=== PATIENT | male | born 1985 | race Caucasian/White ===

== ENCOUNTER 2019-05-24 15:43 | Emergency (ER) | payer SELFPAY ==
[~2019-05-24] VITALS: Ht 182.9 cm; Wt 170.1 kg
[2019-05-24 16:02] VITALS: BP 152/90
[2019-05-24] MEDS ORDERED: METF1000 PO (16:08)
[2019-05-24] MEDS ORDERED: GLIP5TAB4 PO (16:08)
--- NOTE | 2019-05-24 16:24 | NUR ---
PROVIDED PT WITH URINE CUP, HE DOES NOT NEED TO USE THE RESTROOM AT THIS TIME.
--- NOTE | 2019-05-24 16:24 | NUR ---
C/O L LOWER JAW PAIN X1 DAY 05/18 & DULL. PT REPORTS CRACKING A TOOTH 2 WEEKS AGO AND THEN YESTERDAY HE WOKE UP WITH A SWOLLEN L CHEEK AND AN ABCESS IN HIS MOUTH. PT REPORTS HE MADE AN APPT WITH HIS DENTIST BUT THE ABCESS POPPED AND HIS DENTIST REFFERED HIM TO THE ER FOR FURTHER EVALUATION. L SIDE OF PT LOWER JAW IS SWOLLEN. PT DENIES N/V/FEVER, BUT HE HAS A TEMP OF 101 AT THIS TIME.
--- NOTE | 2019-05-24 17:00 | NUR ---
DR. DOTY AT BEDSIDE
[2019-05-24] MEDS ORDERED: NACL 0.9% 1,000 ML IV ONE ×3 (17:05→20:25)
[2019-05-24] MEDS ORDERED: ACETAMINOPHEN 325 MG TAB PO ONE (17:05)
[2019-05-24] MEDS ORDERED: KETOROLAC 30 MG/ML VIAL IVP ONE (17:05)
[2019-05-24] MEDS ORDERED: LIDOCAINE 1% 500 MG/50 ML VIAL INJ SCH (17:05)
[2019-05-24] MEDS ORDERED: CLINDAMYCIN 600 MG in DEXTROSE 5% 50 ML IV ONE (17:05)
[2019-05-24 17:29] LABS: BASOPHILS % (AUTO) 0.2 % (0.0-2.0); EOSINOPHILS # (AUTO) 0.1 K/uL (0-0.4); EOSINOPHILS % (AUTO) 0.7 % (0.0-4.0); HEMATOCRIT 47.4 % (36-52); LYMPHOCYTES # (AUTO) 1.9 K/uL (2.0-11.5); LYMPHOCYTES % (AUTO) 15.6 % (20.5-51.1); MEAN CORPUSCULAR HEMOGLOBIN 30 pg (27-31); MEAN CORPUSCULAR HGB CONC 34 g/dL (33-37); MEAN CORPUSCULAR VOLUME 87.8 fL (80-94); MONOCYTES % (AUTO) 8.3 % (1.7-9.3); NEUTROPHILS # (AUTO) 9.4 K/uL (1.8-7.7); NEUTROPHILS % (AUTO) 75.2 % (42.2-75.2); PLATELET COUNT (AUTO) 154 K/uL (140-450); RED CELL DISTRIBUTION WIDTH 13.1 % (11.6-13.7); WHITE BLOOD COUNT (AUTO) 12.5 K/uL (4.8-10.8)
--- NOTE | 2019-05-24 17:40 | NUR ---
PLACED SCALPEL, LIDOCAINE AND LAC KIT AT BEDSIDE FOR I & D
[2019-05-24] MEDS ORDERED: CLINDAMYCIN 600 MG/4 ML VIAL ONE (17:44)
[2019-05-24] MEDS ORDERED: LIDOCAINE MPF 1% - 5 mL VIAL 10 ML ONE (17:44)
[2019-05-24 17:49] LABS: ALBUMIN 3.2 g/dL (3.4-5.0); ANION GAP 13.5 (8-16); CARBON DIOXIDE 23.5 mmol/L (21-32); CREATININE 1.1 mg/dL (0.7-1.3); TOTAL BILIRUBIN 0.5 mg/dL (0.0-1.0)
[2019-05-24] MEDS ORDERED: INSULIN REGULAR, HUMAN 100 UNIT/ML VIAL SUBQ ONE (18:30)
--- NOTE | 2019-05-24 18:45 | NUR ---
PT REPORTS 10/10 PAIN AT THIS TIME, DR. DOTY AWARE AND WILL ORDER PAIN MEDICATION
[2019-05-24] MEDS ORDERED: MORPHINE SULFATE 4 MG/ML SYR IVP ONE (18:55)
[2019-05-24] MEDS ORDERED: ONDANSETRON 4 MG/2 ML VIAL IVP ONE (18:55)
--- NOTE | 2019-05-24 19:25 | NUR ---
RECEIVED REPORT FROM JOSE R JAMES. PT RESTING IN BED. DEVORA.
--- NOTE | 2019-05-24 20:40 | NUR ---
PT STILL RUNNING BAG OF IVF. CONNECTED NEW ORDERED BAG IF IVF NS SO THEY COULD BOTH INFUSE AT THE SAME TIME.
--- NOTE | 2019-05-24 21:05 | NUR ---
BLOOD SUGAR NOW 286. Addendum: 05/24/19 at 2124 by MNURAM BLOOD SUGAR IS 278, NOT 286.
[2019-05-24 21:15] VITALS: BP 147/86
--- NOTE | 2019-05-24 21:15 | NUR ---
Patient discharged with v/s stable. Written and verbal after care instructions given and explained. Patient alert, oriented and verbalized understanding of instructions. Ambulatory with steady gait. All questions addressed prior to discharge. ID band removed. Patient advised to follow up with PMD. Rx of NORCO 5MG-325MG, NAPROSYN 375MG, AND CLINDAMYCIN HYDROCHLORIDE 300MG given. Patient educated on indication of medication including possible reaction and side effects. Opportunity to ask questions provided and answered.
== END 2019-05-24 21:15 | disposition home or self-care (01) ==
LOC: MED 15:43
DX: K04.7 Periapical abscess without sinus (principal); E11.65 Type 2 diabetes mellitus with hyperglycemia; Z79.84 Long term (current) use of oral hypoglycemic drugs; Z79.899 Other long term (current) drug therapy
CPT/HCPCS: 36415; 41800; 80053; 82948; 85025; 96361; 96365; 96372; 96375; 99283; J1815; J1885; J2001; J2270; J2405; J3490; J7030